=== PATIENT | female | born 2000 | race Caucasian/White ===

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

== ENCOUNTER 2020-11-07 05:49 | Inpatient (IN) | payer OTHER ==
[~2020-11-07] VITALS: Ht 172.7 cm; Wt 119.0 kg
[~2020-11-07 05:49] MED LIST changes: +B-6200 MG PO; +BIRTH CONTROL; +BUPR100 PO; +PRENATAL TABLE1 EAC2 PO; +Ultram50 MG PO; +Veetids 500500 MG PO
[2020-11-07 06:47] LABS: BASOPHILS ABSOLUTE AUTO 0.04 K/mm3 (0.00-0.23); BASOPHILS PERCENT AUTO 0 % (0-2); EOSINOPHILS ABSOLUTE AUTO 0.16 K/mm3 (0.00-0.68); EOSINOPHILS PERCENT AUTO 1 % (0-6); Hematocrit 35.1 % (33.0-51.0); Hemoglobin 11.5 g/dL (11.5-16.0); IMMATURE GRAN ABSOLUTE AUTO 0.06 K/mm3 (0.00-0.10); IMMATURE GRAN PERCENT AUTO 1 % (0-1); LYMPHOCYTES ABSOLUTE AUTO 3.25 K/mm3 (0.84-5.20); LYMPHOCYTES PERCENT AUTO 29 % (21-46); MONOCYTES ABSOLUTE AUTO 0.78 K/mm3 (0.16-1.47); MONOCYTES PERCENT AUTO 7 % (4-13); Mean Corpuscular HGB 26.6 pg (26.0-34.0); Mean Corpuscular HGB Conc 32.8 g/dL (31.5-36.5); Mean Corpuscular Volume 81 fL (80-100); Mean Platelet Volume 10.9 fL (9.1-12.4); NEUTROPHILS ABSOLUTE AUTO 6.85 K/mm3 (1.96-9.15); NEUTROPHILS PERCENT AUTO 62 % (41-73); Platelet Count 185 K/mm3 (150-400); RDW Coefficient Variation 14.9 % (11.7-14.2); RDW Standard Deviation 44.2 fL (35.1-46.3); Red Blood Cell Count 4.32 M/mm3 (3.80-5.20); White Blood Cell Count 11.14 K/mm3 (4.00-11.30)
[2020-11-07 08:17] LABS: PCO2 Cord - Arterial 50.6 mmHg (40-50); pH Cord - Arterial 7.22 (7.28-7.35)
--- NOTE | 2020-11-07 08:17 | NUR ---
11/07/20 0817 Adonay Hernandez PRIMARY DELIVERY OF LIVE FEMALE FOR BREECH PRESENTATION AT 0759. WT 3170 GM 7#0 8/9 CORD SEGMENT COLLECTED AND SENT WITH Keshia LUCIANO. CORD BLOOD COLLECTED AND GIVEN TO [place] CLAIRE RN
[2020-11-07 08:18] LABS: PO2 Cord - Arterial 20.9 mmHg (16-20)
[2020-11-07 08:19] LABS: PCO2 Cord - Venous 47.5 mmHg (40-50); PO2 Cord - Venous 28.3 mmHg (28-32); pH Umbilical Cord - Venous 7.33 (7.26-7.35)
--- NOTE | 2020-11-07 14:39 | NUR ---
RECEIVED REPORT FROM RUSLAN SMITH. ASSUMING CARE OF PT.
[2020-11-08 05:48] LABS: Hematocrit 32.6 % (33.0-51.0); Hemoglobin 10.6 g/dL (11.5-16.0); Mean Corpuscular HGB 26.9 pg (26.0-34.0); Mean Corpuscular HGB Conc 32.5 g/dL (31.5-36.5); Mean Corpuscular Volume 83 fL (80-100); Mean Platelet Volume 11.4 fL (9.1-12.4); Platelet Count 168 K/mm3 (150-400); RDW Coefficient Variation 15.3 % (11.7-14.2); Red Blood Cell Count 3.94 M/mm3 (3.80-5.20); White Blood Cell Count 10.26 K/mm3 (4.00-11.30)
--- NOTE | 2020-11-08 13:53 | NUR ---
Assumed care from Anali Figueroa RN.
--- NOTE | 2020-11-08 17:39 | NUR ---
Printed d/c instructions and teaching reviewed w/pt. Denies questions/concerns.
--- NOTE | 2020-11-09 09:00 | NUR ---
ASSUMED CARE OF PT. PT D/C HOME WITH NB, PERSCRIPTIONS GIVEN, D/C INSTRUCTIONS REVIEWED AND PT HAD NO FURTHUR QUESTIONS. PT INSTRUCTED TO RETURN TO [facility] TOMORROW FOR PPFU AND TO CALL AND SCHDULE POST- APPOINMENT WITH PROVIDER.
[2020-11-09] MEDS ORDERED: DOCU100 (09:06)
[2020-11-09] MEDS ORDERED: Norco 5-325 Ta1 EACH PO (09:06)
[2020-11-09] MEDS ORDERED: IBUP800 PO (09:07)
== END 2020-11-09 10:00 | disposition home or self-care (01) | DRG 788 ==
LOC: BC 05:49
PROVIDERS: ADMIT Family Medicine
PROC: 10D00Z1 Extraction of Products of Conception, Low, Open Approach (ICD-10-PCS; principal; 2020-11-07 07:30)
DX: O32.1XX0 Maternal care for breech presentation, not applicable or unspecified (principal); O99.824 Streptococcus B carrier state complicating childbirth; Z37.0 Single live birth; Z3A.39 39 weeks gestation of pregnancy
CPT/HCPCS: 36415; 82803; 85025; 85027; 86850; 86900; 86901; A9270; J0690; J1885; J2370; J2590; J2765; J7120

== ENCOUNTER 2024-07-16 13:18 | Emergency (ER) | payer BC ==
[~2024-07-16] VITALS: Ht 172.7 cm; Wt 103.9 kg
[~2024-07-16 13:18] MED LIST changes: +DOCU100; +IBUP800 PO; +Norco 5-325 Ta1 EACH PO
[2024-07-16 15:05] LABS: BASOPHILS ABSOLUTE AUTO 0.09 K/mm3 (0.00-0.23); BASOPHILS PERCENT AUTO 1 % (0-2); EOSINOPHILS PERCENT AUTO 1 % (0-6); Hematocrit 41.6 % (33.0-51.0); Hemoglobin 13.4 g/dL (11.5-16.0); IMMATURE GRAN ABSOLUTE AUTO 0.03 K/mm3 (0.00-0.10); IMMATURE GRAN PERCENT AUTO 0 % (0-1); LYMPHOCYTES ABSOLUTE AUTO 2.28 K/mm3 (0.84-5.20); LYMPHOCYTES PERCENT AUTO 18 % (21-46); MONOCYTES ABSOLUTE AUTO 0.65 K/mm3 (0.16-1.47); MONOCYTES PERCENT AUTO 5 % (4-13); Mean Corpuscular HGB 28.3 pg (26.0-34.0); Mean Corpuscular HGB Conc 32.2 g/dL (31.5-36.5); Mean Corpuscular Volume 88 fL (80-100); Mean Platelet Volume 11.3 fL (9.1-12.4); NEUTROPHILS ABSOLUTE AUTO 9.74 K/mm3 (1.96-9.15); NEUTROPHILS PERCENT AUTO 76 % (41-73); Platelet Count 239 K/mm3 (150-400); RDW Coefficient Variation 13.3 % (11.7-14.2); RDW Standard Deviation 43.3 fL (35.1-46.3); Red Blood Cell Count 4.73 M/mm3 (3.80-5.20); White Blood Cell Count 12.89 K/mm3 (4.00-11.30)
[2024-07-16 15:35] LABS: Alanine Aminotransfer (ALT/SGP 22 U/L (12-78); Albumin, Blood 3.2 g/dL (3.4-5.0); Albumin/Globulin Ratio 0.8 (0.8-1.8); Alk Phos 70 U/L (50-136); Anion Gap 10 mmol/L (3-11); Aspartate Aminotrans (AST/SGOT 27 U/L (12-37); Beta HCG, Quantitative, Serum <1 mIU/mL (0-3); Bilirubin, Total 0.2 mg/dL (0.1-1.0); Blood Urea Nitrogen 5 mg/dL (8-24); Bun/Creatinine Ratio 11.2 (12.0-20.0); CO2, Blood 23 mmol/L (21-32); Chloride, Blood 112 mmol/L (98-108); Creatinine, Blood 0.45 mg/dL (0.40-1.00); Globulin, Blood 4.2 g/dL (2.2-4.0); Glomerular Filtration Rate 138 (60-); Glucose, Blood 89 mg/dL (70-99); Potassium, Blood 3.8 mmol/L (3.5-5.5); Sodium, Blood 141 mmol/L (136-145); Total Protein, Blood 7.4 g/dL (6.4-8.2)
[2024-07-16 17:48] VITALS: BP 136/79
[2024-07-16] MEDS ORDERED: Ondansetron HCl 2 MG / ML 2ML Vial IV ONE (20:35)
[2024-07-16] MEDS ORDERED: Mag Hydrox/AL Hydrox/Simeth 30 ML UDC PO ONE (20:35)
[2024-07-16] MEDS ORDERED: Famotidine 20 MG Tab PO ONE (20:35)
[2024-07-16] MEDS ORDERED: FAMO20 PO (20:40)
[2024-07-16] MEDS ORDERED: ONDA4ODT MM (20:40)
== END 2024-07-16 21:06 | disposition home or self-care (01) ==
LOC: ER 13:18
PROVIDERS: Emergency Medicine
DX: K80.20 Calculus of gallbladder without cholecystitis without obstruction (principal); K76.0 Fatty (change of) liver, not elsewhere classified; Z88.8 Allergy status to other drugs, medicaments and biological substances; Z79.899 Other long term (current) drug therapy
CPT/HCPCS: 76705; 80053; 83690; 84702; 85025; 96374; 99284-25; A9270; J2405